=== PATIENT | female | born 1975 | race Caucasian/White ===

== ENCOUNTER 2017-08-11 07:08 | Day surgery (SDC) | payer OTHER ==
[~2017-08-11] VITALS: Ht 172.7 cm; Wt 77.1 kg
[~2017-08-11 07:08] MED LIST: EFFEXOR50 MG PO; FLEXERIL10 MG PO; MOTRIN800 MG PO; PRAVACHOL20 MG PO; ZYRTEC10 M3 PO
[2017-08-11] MEDS ORDERED: MOTRIN800 MG PO (07:37)
[2017-08-11] MEDS ORDERED: PERCOCET 5/31 TABLET PO (07:37)
[2017-08-11 08:05] VITALS: BP 114/67
[2017-08-11 13:10] VITALS: BP 117/71
[2017-08-11 14:15] VITALS: BP 125/72
== END 2017-08-11 14:25 | disposition home or self-care (01) ==
LOC: SDC 07:08
DX: N80.0 Endometriosis of uterus (principal); N87.9 Dysplasia of cervix uteri, unspecified; N72 Inflammatory disease of cervix uteri; N94.6 Dysmenorrhea, unspecified; E78.00 Pure hypercholesterolemia, unspecified; Z87.891 Personal history of nicotine dependence
CPT/HCPCS: 88307; J0690; J1100; J1885; J2001; J2405; J2710; J2795; J3010; J3475; Q0175; S0020